=== PATIENT | male | born 1965 | race Caucasian/White ===

== ENCOUNTER 2016-11-21 08:58 | Emergency (ER) | payer BC ==
[~2016-11-21] VITALS: Ht 175.3 cm; Wt 78.9 kg
--- NOTE | 2016-11-21 09:08 | NUR ---
PRESENTS SELF TO ED FOR LEFT 2ND DIGIT LAC. VSS
--- NOTE | 2016-11-21 09:09 | NUR ---
MD MELÉNDEZ AT BS
[2016-11-21] MEDS ORDERED: TDAP [DIPH/PERTUSSIS/TET] 0.5 ML VIAL IM ONE ×2 (09:13→09:30)
[2016-11-21] MEDS ORDERED: LIDOCAINE /MPF 1% VIAL 5 ML VIAL TP ONE (09:30)
[2016-11-21 09:42] VITALS: BP 141/84
== END 2016-11-21 09:42 | disposition home or self-care (01) ==
LOC: ER 09:01
DX: S61.211A Laceration without foreign body of left index finger without damage to nail, initial encounter (principal); I10 Essential (primary) hypertension; Z23 Encounter for immunization; W26.8XXA Contact with other sharp object(s), not elsewhere classified, initial encounter; Y93.H2 Activity, gardening and landscaping; Y92.89 Other specified places as the place of occurrence of the external cause; Y99.9 Unspecified external cause status
CPT/HCPCS: 12001; 90471; 90715; 99283; A4606; Z7610

== ENCOUNTER 2021-09-14 12:43 | Emergency (ER) | payer BC ==
[~2021-09-14] VITALS: Ht 175.3 cm; Wt 85.3 kg
[2021-09-14 12:51] VITALS: BP 136/90
[2021-09-14] MEDS ORDERED: OSEL75CA PO ×2 (12:54→12:55)
== END 2021-09-14 13:05 | disposition home or self-care (01) ==
LOC: ER 12:43
DX: J06.9 Acute upper respiratory infection, unspecified (principal); B97.89 Other viral agents as the cause of diseases classified elsewhere; Z20.822 Contact with and (suspected) exposure to COVID-19; I10 Essential (primary) hypertension
CPT/HCPCS: 87426; 87804; 99283; C9803; U0003